=== PATIENT | female | born 1930 | race Hispanic/Latino ===

== ENCOUNTER 2021-07-14 14:23 | Inpatient (IN) | payer MEDICARE ==
[~2021-07-14] VITALS: Ht 162.6 cm; Wt 46.6 kg
[2021-07-14 14:29] VITALS: BP 142/77
[2021-07-14 15:16] LABS: BASOPHILS % (AUTO) 0.4 % (0.0-5.0); EOSINOPHILS % (AUTO) 1.2 % (0.0-8.0); HEMATOCRIT 21.2 % (36-48); LYMPHOCYTES % (AUTO) 8.5 % (21.0-51.0); MEAN CORPUSCULAR HGB CONC 25.5 g/dL (32.0-36.0); MEAN CORPUSCULAR VOLUME 62.9 fL (79-99); NEUTROPHILS % (AUTO) 83.2 % (40.0-77.0); NUCLEATED RED BLOOD CELLS 0.2 % (0.0-0.19); PLATELET COUNT (AUTO) 222 K/uL (130-400); RED BLOOD CELL COUNT(AUTO) 3.37 MIL/uL (4.00-5.50); RED CELL DISTRIBUTION WIDTH 23.3 % (11.0-15.5); WHITE BLOOD COUNT (AUTO) 8.2 K/uL (4.8-10.8)
[2021-07-14 15:26] LABS: CREATININE 1.3 mg/dL (0.5-1.5); POTASSIUM 4.1 mmol/L (3.5-5.1)
[2021-07-14 15:34] LABS: INR 1.14 (0.85-1.15); PROTHROMBIN TIME 12.3 SEC (9.6-11.6)
[2021-07-14 15:37] LABS: ALBUMIN 1.7 g/dL (3.5-5.0); BILIRUBIN,TOTAL 0.5 mg/dL (0.2-1.0); MAGNESIUM 2.4 mg/dL (1.80-2.40); TOTAL PROTEIN, SERUM 5.8 g/dL (6.0-8.3); TROPONIN I 0.22 ng/mL (0.00-0.06)
[2021-07-14 15:45] LABS: B-TYPE NATRIURETIC PEPTIDE 953 pg/mL (0-100)
[2021-07-14] MEDS ORDERED: 0.9%NACL 1000ML 1,000 ML IV ONE (16:00)
[2021-07-14] MEDS ORDERED: PHARMACY COMMUNICATION MISC SCH ×2 (18:00→19:00)
[2021-07-14] MEDS ORDERED: ASPIRIN 81MG CHEW TAB PO ONE (18:00)
[2021-07-14] MEDS ORDERED: VANCOMYCIN PROTOCOL PER PHARMACY IV SCH (18:00)
[2021-07-14 19:00] LABS: APPEARANCE,URINE Clear (CLEAR); BILIRUBIN,URINE Negative (NEGATIVE); COLOR,URINE Dark Yellow (YELLOW); GLUCOSE, URINE (UA) Negative (NEGATIVE); KETONES,URINE Negative (NEGATIVE); LEUKOCYTE ESTERASE ,URINE Trace (NEGATIVE); NITRATE,URINE Negative (NEGATIVE); OCCULT BLOOD,URINE Negative (NEGATIVE); PH,URINE 5.5 (5.0-8.0); PROTEIN,URINE Trace mg/dL (NEGATIVE)
[2021-07-14 19:08] LABS: AMPHET/METH SCREEN,URINE NEGATIVE (NEGATIVE); BARBITURATE SCREEN, URINE NEGATIVE (NEGATIVE); BENZODIAZEPINES SCREEN,URINE NEGATIVE (NEGATIVE); CANNABINOID SCREEN,URINE NEGATIVE (NEGATIVE); COCAINE SCREEN,URINE NEGATIVE (NEGATIVE); OPIATE SCREEN,URINE NEGATIVE (NEGATIVE); PHENCYCLIDINE SCREEN,URINE NEGATIVE (NEGATIVE)
[2021-07-14 19:15] LABS: BACTERIA,URINE Few /HPF (None Seen); RBC,URINE 0-1 /HPF (0-1)
[2021-07-14 19:16] LABS: HYALINE CASTS, URINE 0-1 /LPF (0-1 /LPF); SQUAMOUS EPITHELIAL CELL,UR Few /HPF (0-2)
[2021-07-14] MEDS ORDERED: NITR1PAT66 TD (19:22)
[2021-07-14 19:33] LABS: % IRON SATURATION 4.9 % (22-44)
[2021-07-14 19:36] VITALS: BP 113/60
[2021-07-14 19:52] LABS: HEMOGLOBIN A1C 5.7 % (4.0-6.0)
[2021-07-14] MEDS ORDERED: 0.9% NACL 250ML 250 ML IV ONE (20:00)
[2021-07-14] MEDS ORDERED: VANCOMYCIN KIT 1 GM/250 ML IV.KIT IV ONE (20:00)
[2021-07-14 20:13] VITALS: BP 128/64
[2021-07-14] MEDS: PANTOPRAZOLE 40 MG/VIAL IVP SCH (21:53)
[2021-07-14] MEDS: CEFEPIME HCL 1 GM VIAL IVP SCH (21:53)
[2021-07-14 22:23] VITALS: BP 112/61
[2021-07-15] VITALS (13 sets, daily range): BP systolic 102–132; BP diastolic 55–77
[2021-07-15 05:00] LABS: HEMATOCRIT 35.7 % (36-48)
[2021-07-15] MEDS: 0.9% NACL 250ML 250 ML IV SCH (08:54)
[2021-07-15] MEDS: PANTOPRAZOLE 40 MG/VIAL IVP SCH ×2 (08:54→21:53)
[2021-07-15] MEDS: ASPIRIN 81MG CHEW TAB PO SCH (08:54)
[2021-07-15] MEDS: VANCOMYCIN 750MG VIAL IVPB SCH (08:54)
[2021-07-15 09:46] LABS: CREATININE 1.4 mg/dL (0.5-1.5); POTASSIUM 4.2 mmol/L (3.5-5.1)
[2021-07-15 09:54] LABS: MAGNESIUM 2.6 mg/dL (1.80-2.40)
[2021-07-15] MEDS: DEXTROSE 5%-WATER 1,000 ML IV SCH (12:58)
[2021-07-15 21:15] LABS: BASOPHILS % (AUTO) 0.3 % (0.0-5.0); EOSINOPHILS % (AUTO) 1.3 % (0.0-8.0); HEMATOCRIT 30.6 % (36-48); LYMPHOCYTES % (AUTO) 4.9 % (21.0-51.0); MEAN CORPUSCULAR HEMOGLOBIN 20.7 pg (27.0-33.0); MEAN CORPUSCULAR HGB CONC 29.4 g/dL (32.0-36.0); MEAN CORPUSCULAR VOLUME 70.3 fL (79-99); MONOCYTES % (AUTO) 3.1 % (3.0-13.0); NEUTROPHILS % (AUTO) 89.8 % (40.0-77.0); NUCLEATED RED BLOOD CELLS 0.2 % (0.0-0.19); PLATELET COUNT (AUTO) 170 K/uL (130-400); RED BLOOD CELL COUNT(AUTO) 4.35 MIL/uL (4.00-5.50); RED CELL DISTRIBUTION WIDTH 25.4 % (11.0-15.5); WHITE BLOOD COUNT (AUTO) 12.1 K/uL (4.8-10.8)
[2021-07-15 21:35] LABS: ALBUMIN 1.6 g/dL (3.5-5.0); BILIRUBIN,TOTAL 1.3 mg/dL (0.2-1.0); CREATININE 1.4 mg/dL (0.5-1.5); MAGNESIUM 2.3 mg/dL (1.80-2.40); POTASSIUM 3.9 mmol/L (3.5-5.1); TOTAL PROTEIN, SERUM 5.3 g/dL (6.0-8.3)
[2021-07-15] MEDS: CEFEPIME HCL 1 GM VIAL IVP SCH (21:53)
[2021-07-16] VITALS: BP 122/66
[2021-07-16] MEDS: DEXTROSE 5%-WATER 1,000 ML IV SCH ×2 (00:23→15:34)
[2021-07-16 04:00] VITALS: BP 132/74
[2021-07-16] MEDS ORDERED: COMPOUND IV MISC 1 EACH IVSOLN MISC PRN (08:00)
[2021-07-16 08:18] VITALS: BP 116/50
[2021-07-16 08:29] LABS: CREATININE 1.4 mg/dL (0.5-1.5); MAGNESIUM 2.2 mg/dL (1.80-2.40); POTASSIUM 3.6 mmol/L (3.5-5.1)
[2021-07-16] MEDS ORDERED: LORAZEPAM 2 MG/ML 1 ML VIAL ONE (10:35)
[2021-07-16] MEDS: 0.9% NACL 250ML 250 ML IV SCH (10:54)
[2021-07-16] MEDS: VANCOMYCIN 750MG VIAL IVPB SCH (10:54)
[2021-07-16] MEDS: ZINC SULFATE 220 CAPSULE PO SCH (10:55)
[2021-07-16] MEDS: PANTOPRAZOLE 40 MG/VIAL IVP SCH ×2 (10:55→20:50)
[2021-07-16] MEDS: ASCORBIC ACID 500 MG TAB PO SCH (10:55)
[2021-07-16] MEDS: ASPIRIN 81MG CHEW TAB PO SCH (10:55)
[2021-07-16] MEDS ORDERED: ASPI-1197 PO (11:49)
[2021-07-16 12:02] VITALS: BP 100/44
[2021-07-16] MEDS: IRON SUCROSE COMPLEX 200 MG in 0.9% NACL 250ML 250 ML IV SCH (15:34)
[2021-07-16 16:55] VITALS: BP 116/61
[2021-07-16 20:00] VITALS: BP 126/66
[2021-07-16] MEDS: NIACIN 500 MG SRTAB PO SCH (20:50)
[2021-07-16] MEDS: CEFEPIME HCL 1 GM VIAL IVP SCH (20:50)
[2021-07-16] MEDS: SODIUM HYPOCHLORITE 0.125% 473 ML SOLUTION TP SCH (20:51)
[2021-07-17] VITALS (7 sets, daily range): BP systolic 112–153; BP diastolic 55–86
[2021-07-17 04:01] LABS: BASOPHILS % (AUTO) 0.3 % (0.0-5.0); EOSINOPHILS % (AUTO) 1.4 % (0.0-8.0); HEMATOCRIT 29.8 % (36-48); LYMPHOCYTES % (AUTO) 5.7 % (21.0-51.0); MEAN CORPUSCULAR HEMOGLOBIN 20.6 pg (27.0-33.0); MEAN CORPUSCULAR HGB CONC 29.5 g/dL (32.0-36.0); MEAN CORPUSCULAR VOLUME 69.8 fL (79-99); MONOCYTES % (AUTO) 3.4 % (3.0-13.0); NEUTROPHILS % (AUTO) 88.3 % (40.0-77.0); PLATELET COUNT (AUTO) 137 K/uL (130-400); RED BLOOD CELL COUNT(AUTO) 4.27 MIL/uL (4.00-5.50); RED CELL DISTRIBUTION WIDTH 27.4 % (11.0-15.5); WHITE BLOOD COUNT (AUTO) 11.7 K/uL (4.8-10.8)
[2021-07-17 04:41] LABS: ALANINE AMINOTRANSFERASE 17 U/L (12-78); ALBUMIN 1.5 g/dL (3.5-5.0); ASPARTATE AMINOTRANSFERASE 28 U/L (10-37); BILIRUBIN,TOTAL 1.1 mg/dL (0.2-1.0); CARBON DIOXIDE 25 mmol/L (21-32); CHLORIDE 115 mmol/L (101-111); CREATININE 1.4 mg/dL (0.5-1.5); GLOMERULAR FILTR. RATE CALC 38 mL/min (>60); GLUCOSE,RANDOM 72 mg/dL (70-105); POTASSIUM 3.4 mmol/L (3.5-5.1); SODIUM SERUM 148 mmol/L (136-145); THYROID STIMULATING HORMONE 13.87 uIU/mL (0.36-3.74); TOTAL PROTEIN, SERUM 5.1 g/dL (6.0-8.3); UREA NITROGEN, BLOOD 27 mg/dL (7-18)
[2021-07-17] MEDS ORDERED: POTASSIUM CHLORIDE 10% ELIXIR 20 MEQ/15 ML UDCUP PO ONE (06:00)
[2021-07-17] MEDS: VANCOMYCIN 750MG VIAL IVPB SCH (10:42)
[2021-07-17] MEDS: 0.9% NACL 250ML 250 ML IV SCH (10:43)
[2021-07-17] MEDS: PANTOPRAZOLE 40 MG/VIAL IVP SCH ×2 (10:43→20:55)
[2021-07-17] MEDS: ASCORBIC ACID 500 MG TAB PO SCH (10:44)
[2021-07-17] MEDS: ZINC SULFATE 220 CAPSULE PO SCH (10:44)
[2021-07-17] MEDS: ASPIRIN 81MG CHEW TAB PO SCH (10:44)
[2021-07-17] MEDS: SODIUM HYPOCHLORITE 0.125% 473 ML SOLUTION TP SCH ×3 (10:44→20:56)
[2021-07-17] MEDS: IRON SUCROSE COMPLEX 200 MG in 0.9% NACL 250ML 250 ML IV SCH (10:45)
[2021-07-17] MEDS: POTASSIUM CHLORIDE 10% ELIXIR 20 MEQ/15 ML UDCUP PO SCH ×2 (11:02→20:55)
[2021-07-17] MEDS ORDERED: ERGOCALCIFEROL (VITAMIN D2) 50,000 UNIT CAPSULE PO SCH (12:00)
[2021-07-17] MEDS: DRONABINOL 2.5 MG CAP PO SCH (15:14)
[2021-07-17] MEDS: DEXTROSE 5%-WATER 1,000 ML IV SCH (15:14)
[2021-07-17] MEDS: NIACIN 500 MG SRTAB PO SCH (20:55)
[2021-07-17] MEDS: CEFEPIME HCL 1 GM VIAL IVP SCH (20:55)
[2021-07-18 04:00] VITALS: BP 136/67
[2021-07-18 05:51] LABS: ALBUMIN 1.4 g/dL (3.5-5.0); BILIRUBIN,TOTAL 0.8 mg/dL (0.2-1.0); CREATININE 1.3 mg/dL (0.5-1.5); POTASSIUM 3.7 mmol/L (3.5-5.1); TOTAL PROTEIN, SERUM 4.9 g/dL (6.0-8.3)
[2021-07-18] MEDS: LEVOTHYROXINE 50 MCG TABLET PO SCH (06:21)
[2021-07-18 08:00] VITALS: BP 121/55
[2021-07-18] MEDS: IRON SUCROSE COMPLEX 200 MG in 0.9% NACL 250ML 250 ML IV SCH (09:00)
[2021-07-18] MEDS: VANCOMYCIN 750MG VIAL IVPB SCH (09:30)
[2021-07-18] MEDS: 0.9% NACL 250ML 250 ML IV SCH (09:30)
[2021-07-18] MEDS: ZINC SULFATE 220 CAPSULE PO SCH (09:31)
[2021-07-18] MEDS: DRONABINOL 2.5 MG CAP PO SCH (09:31)
[2021-07-18] MEDS: ASPIRIN 81MG CHEW TAB PO SCH (09:31)
[2021-07-18] MEDS: PANTOPRAZOLE 40 MG/VIAL IVP SCH ×2 (09:31→21:09)
[2021-07-18] MEDS: ASCORBIC ACID 500 MG TAB PO SCH (09:31)
[2021-07-18] MEDS: SODIUM HYPOCHLORITE 0.125% 473 ML SOLUTION TP SCH ×3 (09:32→21:10)
[2021-07-18] MEDS: POTASSIUM CHLORIDE 10% ELIXIR 20 MEQ/15 ML UDCUP PO SCH (09:32)
[2021-07-18 12:00] VITALS: BP 124/63
[2021-07-18] MEDS: DEXTROSE 5%-WATER 1,000 ML IV SCH (14:39)
[2021-07-18 16:00] VITALS: BP 120/60
[2021-07-18 20:00] VITALS: BP 128/90
[2021-07-18] MEDS: NIACIN 500 MG SRTAB PO SCH (21:09)
[2021-07-18] MEDS: CEFEPIME HCL 1 GM VIAL IVP SCH (21:09)
[2021-07-18 23:42] VITALS: BP 161/77
[2021-07-19 04:00] VITALS: BP 145/69
[2021-07-19 04:31] LABS: ALBUMIN 1.3 g/dL (3.5-5.0); BILIRUBIN,TOTAL 0.7 mg/dL (0.2-1.0); CREATININE 1.2 mg/dL (0.5-1.5); POTASSIUM 3.8 mmol/L (3.5-5.1); TOTAL PROTEIN, SERUM 4.8 g/dL (6.0-8.3)
[2021-07-19] MEDS: LEVOTHYROXINE 50 MCG TABLET PO SCH (06:20)
[2021-07-19 08:00] VITALS: BP 114/59
[2021-07-19] MEDS: ASPIRIN 81MG CHEW TAB PO SCH (11:27)
[2021-07-19] MEDS: ZINC SULFATE 220 CAPSULE PO SCH (11:27)
[2021-07-19] MEDS: DRONABINOL 2.5 MG CAP PO SCH (11:27)
[2021-07-19] MEDS: ASCORBIC ACID 500 MG TAB PO SCH (11:27)
[2021-07-19] MEDS: VANCOMYCIN 750MG VIAL IVPB SCH (11:28)
[2021-07-19] MEDS: 0.9% NACL 250ML 250 ML IV SCH (11:30)
[2021-07-19] MEDS: SODIUM HYPOCHLORITE 0.125% 473 ML SOLUTION TP SCH ×3 (11:31→21:29)
[2021-07-19 12:00] VITALS: BP 112/54
[2021-07-19] MEDS: PANTOPRAZOLE 40 MG/VIAL IVP SCH ×2 (14:17→21:28)
[2021-07-19] MEDS: IRON SUCROSE COMPLEX 200 MG in 0.9% NACL 250ML 250 ML IV SCH (14:17)
[2021-07-19] MEDS: DEXTROSE 5%-WATER 1,000 ML IV SCH ×2 (14:18→21:28)
[2021-07-19 16:00] VITALS: BP 108/59
[2021-07-19 19:00] VITALS: BP 127/65
[2021-07-19] MEDS: NIACIN 500 MG SRTAB PO SCH (21:28)
[2021-07-19] MEDS: CEFEPIME HCL 1 GM VIAL IVP SCH (21:28)
[2021-07-20] VITALS (7 sets, daily range): BP systolic 121–138; BP diastolic 62–78
[2021-07-20] MEDS: LEVOTHYROXINE 50 MCG TABLET PO SCH (05:11)
[2021-07-20 06:53] LABS: CREATININE 1.2 mg/dL (0.5-1.5); MAGNESIUM 1.8 mg/dL (1.80-2.40); POTASSIUM 4.1 mmol/L (3.5-5.1)
[2021-07-20 08:07] LABS: BASOPHILS % (AUTO) 0.9 % (0.0-5.0); HEMATOCRIT 31.2 % (36-48); LYMPHOCYTES % (AUTO) 16.2 % (21.0-51.0); MEAN CORPUSCULAR HEMOGLOBIN 20.6 pg (27.0-33.0); MEAN CORPUSCULAR HGB CONC 28.2 g/dL (32.0-36.0); MEAN CORPUSCULAR VOLUME 72.9 fL (79-99); MONOCYTES % (AUTO) 6.5 % (3.0-13.0); NEUTROPHILS % (AUTO) 69.7 % (40.0-77.0); NUCLEATED RED BLOOD CELLS 0.3 % (0.0-0.19); PLATELET COUNT (AUTO) 120 K/uL (130-400); RED BLOOD CELL COUNT(AUTO) 4.28 MIL/uL (4.00-5.50); RED CELL DISTRIBUTION WIDTH 30.1 % (11.0-15.5); WHITE BLOOD COUNT (AUTO) 6.4 K/uL (4.8-10.8)
[2021-07-20] MEDS: DRONABINOL 2.5 MG CAP PO SCH (11:51)
[2021-07-20] MEDS: ASPIRIN 81MG CHEW TAB PO SCH (11:51)
[2021-07-20] MEDS: VANCOMYCIN 750MG VIAL IVPB SCH (11:51)
[2021-07-20] MEDS: 0.9% NACL 250ML 250 ML IV SCH (11:51)
[2021-07-20] MEDS: PANTOPRAZOLE 40 MG/VIAL IVP SCH ×2 (11:51→21:26)
[2021-07-20] MEDS: ZINC SULFATE 220 CAPSULE PO SCH (11:52)
[2021-07-20] MEDS: SODIUM HYPOCHLORITE 0.125% 473 ML SOLUTION TP SCH ×3 (11:52→21:29)
[2021-07-20] MEDS: ASCORBIC ACID 500 MG TAB PO SCH (11:52)
[2021-07-20] MEDS: NIACIN 500 MG SRTAB PO SCH (21:26)
[2021-07-20] MEDS: CEFEPIME HCL 1 GM VIAL IVP SCH (21:26)
[2021-07-21 03:58] VITALS: BP 121/63
[2021-07-21] MEDS: LEVOTHYROXINE 50 MCG TABLET PO SCH (06:10)
[2021-07-21 06:51] LABS: CREATININE 1.1 mg/dL (0.5-1.5); MAGNESIUM 1.7 mg/dL (1.80-2.40); POTASSIUM 3.5 mmol/L (3.5-5.1)
[2021-07-21 08:00] VITALS: BP 132/72
[2021-07-21] MEDS: ASPIRIN 81MG CHEW TAB PO SCH (10:49)
[2021-07-21] MEDS: PANTOPRAZOLE 40 MG/VIAL IVP SCH ×2 (10:49→21:39)
[2021-07-21] MEDS: VANCOMYCIN 750MG VIAL IVPB SCH (10:50)
[2021-07-21] MEDS: DRONABINOL 2.5 MG CAP PO SCH (10:50)
[2021-07-21] MEDS: ASCORBIC ACID 500 MG TAB PO SCH (10:50)
[2021-07-21] MEDS: ZINC SULFATE 220 CAPSULE PO SCH (10:50)
[2021-07-21] MEDS: 0.9% NACL 250ML 250 ML IV SCH (10:50)
[2021-07-21 12:00] VITALS: BP 139/69
[2021-07-21 16:00] VITALS: BP 136/71
[2021-07-21 20:00] VITALS: BP 126/65
[2021-07-21] MEDS: CEFEPIME HCL 1 GM VIAL IVP SCH (21:39)
[2021-07-21] MEDS: SODIUM HYPOCHLORITE 0.125% 473 ML SOLUTION TP SCH (21:40)
[2021-07-21] MEDS: NIACIN 500 MG SRTAB PO SCH (21:40)
[2021-07-21] MEDS: DEXTROSE 5%-WATER 1,000 ML IV SCH (21:40)
[2021-07-21 23:44] VITALS: BP 120/60
[2021-07-22 04:25] VITALS: BP 116/56
[2021-07-22] MEDS: LEVOTHYROXINE 50 MCG TABLET PO SCH (04:29)
[2021-07-22 08:02] LABS: BASOPHILS % (AUTO) 0.6 % (0.0-5.0); EOSINOPHILS % (AUTO) 2.6 % (0.0-8.0); HEMATOCRIT 27.9 % (36-48); LYMPHOCYTES % (AUTO) 17.9 % (21.0-51.0); MEAN CORPUSCULAR HEMOGLOBIN 20.9 pg (27.0-33.0); MEAN CORPUSCULAR VOLUME 72.1 fL (79-99); NEUTROPHILS % (AUTO) 70.4 % (40.0-77.0); PLATELET COUNT (AUTO) 152 K/uL (130-400); RED BLOOD CELL COUNT(AUTO) 3.87 MIL/uL (4.00-5.50); RED CELL DISTRIBUTION WIDTH 30.6 % (11.0-15.5)
[2021-07-22 08:30] LABS: POTASSIUM 3.2 mmol/L (3.5-5.1)
[2021-07-22 08:32] VITALS: BP 126/60
[2021-07-22] MEDS: DRONABINOL 2.5 MG CAP PO SCH (09:00)
[2021-07-22] MEDS ORDERED: POTASSIUM CHLORIDE 10% ELIXIR 20 MEQ/15 ML UDCUP PO ONE (09:30)
[2021-07-22] MEDS: PANTOPRAZOLE 40 MG/VIAL IVP SCH ×2 (10:13→20:11)
[2021-07-22] MEDS: ZINC SULFATE 220 CAPSULE PO SCH (10:13)
[2021-07-22] MEDS: ASCORBIC ACID 500 MG TAB PO SCH (10:13)
[2021-07-22] MEDS: ASPIRIN 81MG CHEW TAB PO SCH (10:13)
[2021-07-22] MEDS: SODIUM HYPOCHLORITE 0.125% 473 ML SOLUTION TP SCH ×2 (10:14→20:12)
[2021-07-22] MEDS: ACETAMINOPHEN 325 MG TAB PO PRN (10:17)
[2021-07-22 12:09] VITALS: BP 159/73
[2021-07-22 16:51] VITALS: BP 151/76
[2021-07-22] MEDS: NIACIN 500 MG SRTAB PO SCH (19:52)
[2021-07-22] MEDS: CEFEPIME HCL 1 GM VIAL IVP SCH (19:52)
[2021-07-22] MEDS: DEXTROSE 5%-WATER 1,000 ML IV SCH (20:12)
[2021-07-22 20:20] VITALS: BP 106/60
[2021-07-22 23:19] VITALS: BP 116/57
[2021-07-23 03:47] VITALS: BP 108/62
[2021-07-23] MEDS: LEVOTHYROXINE 50 MCG TABLET PO SCH (04:27)
[2021-07-23 07:30] VITALS: BP 123/63
[2021-07-23 08:43] LABS: CREATININE 1.1 mg/dL (0.5-1.5); POTASSIUM 3.9 mmol/L (3.5-5.1); VANCOMYCIN LEVEL 21.7 mcg/mL (18.0-26.0)
[2021-07-23] MEDS: DRONABINOL 2.5 MG CAP PO SCH (09:00)
[2021-07-23 11:00] VITALS: BP 133/76
[2021-07-23] MEDS: ACETAMINOPHEN 325 MG TAB PO PRN (11:01)
[2021-07-23] MEDS: ASCORBIC ACID 500 MG TAB PO SCH (11:02)
[2021-07-23] MEDS: ZINC SULFATE 220 CAPSULE PO SCH (11:02)
[2021-07-23] MEDS: ASPIRIN 81MG CHEW TAB PO SCH (11:02)
[2021-07-23] MEDS: PANTOPRAZOLE 40 MG/VIAL IVP SCH (11:02)
[2021-07-23] MEDS: SODIUM HYPOCHLORITE 0.125% 473 ML SOLUTION TP SCH (11:03)
== END 2021-07-23 20:00 | DRG 871 ==
LOC: EDH 14:23 → EDHIP 17:50 → 4CH 07-15 16:34
PROVIDERS: ADMIT Internal Medicine; ATTEND Internal Medicine
PROC: 30233N1 Transfusion of Nonautologous Red Blood Cells into Peripheral Vein, Percutaneous Approach (ICD-10-PCS; principal; 2021-07-14)
DX: A41.9 Sepsis, unspecified organism (principal); L89.154 Pressure ulcer of sacral region, stage 4; E43 Unspecified severe protein-calorie malnutrition; I21.A1 Myocardial infarction type 2; J96.01 Acute respiratory failure with hypoxia; S32.592A Other specified fracture of left pubis, initial encounter for closed fracture; E87.1 Hypo-osmolality and hyponatremia; M46.28 Osteomyelitis of vertebra, sacral and sacrococcygeal region; E87.0 Hyperosmolality and hypernatremia; Z68.1 Body mass index [BMI] 19.9 or less, adult; M80.88XA Other osteoporosis with current pathological fracture, vertebra(e), initial encounter for fracture; L97.919 Non-pressure chronic ulcer of unspecified part of right lower leg with unspecified severity; R64 Cachexia; G93.40 Encephalopathy, unspecified; K86.1 Other chronic pancreatitis; D50.9 Iron deficiency anemia, unspecified; R62.7 Adult failure to thrive; E86.0 Dehydration; D64.9 Anemia, unspecified; E88.09 Other disorders of plasma-protein metabolism, not elsewhere classified; R53.81 Other malaise; F03.90 Unspecified dementia, unspecified severity, without behavioral disturbance, psychotic disturbance, mood disturbance, and anxiety; R13.12 Dysphagia, oropharyngeal phase; M40.209 Unspecified kyphosis, site unspecified; J84.112 Idiopathic pulmonary fibrosis; D72.810 Lymphocytopenia; E87.6 Hypokalemia; E87.8 Other disorders of electrolyte and fluid balance, not elsewhere classified; E03.9 Hypothyroidism, unspecified; R59.0 Localized enlarged lymph nodes; J44.9 Chronic obstructive pulmonary disease, unspecified; K44.9 Diaphragmatic hernia without obstruction or gangrene; K57.30 Diverticulosis of large intestine without perforation or abscess without bleeding; Z20.822 Contact with and (suspected) exposure to COVID-19; W19.XXXA Unspecified fall, initial encounter; Y93.89 Activity, other specified; Y92.89 Other specified places as the place of occurrence of the external cause; Y99.8 Other external cause status; Z74.01 Bed confinement status
CPT/HCPCS: 36415; 70450; 71045; 71250; 72146; 72170; 73080; 74176; 76856; 80048; 80053; 80202; 80305; 81001; 82140; 82306; 82550; 82607; 82728; 82746; 83036; 83540; 83550; 83605; 83735; 83874; 83880; 84100; 84145; 84300; 84443; 84484; 85014; 85018; 85025; 85610; 85651; 86140; 86850; 86900; 86901; 86923; 87635; 92526; 92610; 93005; 93306; 93356; 93925; 93930; C9113; G0378; J0692; J1756; J2060; J3370; J7050; J7070; P9016; Q0167